=== PATIENT | female | born 1980 | race Caucasian/White ===

== ENCOUNTER 2018-01-09 09:06 | Outpatient (RCR) | payer OTHER, SELFPAY ==
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
== END 2018-01-09 19:00 | disposition home or self-care (01) ==
LOC: OT 09:06
PROVIDERS: Family Provider Internal Medicine; PCP Internal Medicine; Referring Provider Nurse Practitioner; Visit Provider Nurse Practitioner
DX: F43.23 Adjustment disorder with mixed anxiety and depressed mood (principal); R53.83 Other fatigue; F41.0 Panic disorder [episodic paroxysmal anxiety]
CPT/HCPCS: 97165; 97166